=== PATIENT | female | born 1930 | race Caucasian/White ===

== ENCOUNTER 2016-09-20 14:21 | Outpatient (CLI) | payer MEDICARE | END 2016-09-20 14:22 | disposition home or self-care (01) | LOC: HPCALD 14:21 | PROVIDERS: ATTEND Family Medicine | DX: N39.0 Urinary tract infection, site not specified (principal) | CPT/HCPCS: 87086 ==

== ENCOUNTER 2018-02-24 15:34 | Outpatient (CLI) | payer MEDICARE ==
--- NOTE | 2018-02-24 19:51 | RAD ---
LUMBAR SPINE THREE VIEWS: 02/24/2018 COMPARISON: No prior films are available for comparison. FINDINGS: The bones are osteopenic, which decreases sensitivity slightly. There is an anterior compression fra cture of the T12 vertebral body, with at least 70% loss of the anterior height. Grade 1 spondylolist hesis of L4 on L5 is seen, probably due to facet arthritis. There is disk space narrowing at L5-S1 a nd to a lesser extent at L2-L3 and L3-L4. Mild scoliosis is present, convex right. The SI joints ap pear normal. IMPRESSION: 1. Prominent anterior compression fracture of the T12 vertebral body. 2. Grade 1 spondylolisthesis of L4 on L5. 3. Degenerative disk disease, multilevel, but prominent at L5-S1. 4. Scoliosis. POS: HOME
== END 2018-02-24 15:35 | disposition home or self-care (01) ==
LOC: BURRAD 15:34
PROVIDERS: ATTEND Family Medicine
DX: M51.16 Intervertebral disc disorders with radiculopathy, lumbar region (principal); M43.16 Spondylolisthesis, lumbar region; M51.37 Other intervertebral disc degeneration, lumbosacral region; M41.9 Scoliosis, unspecified; M48.54XA Collapsed vertebra, not elsewhere classified, thoracic region, initial encounter for fracture
CPT/HCPCS: 72100

== ENCOUNTER 2019-02-10 08:54 | Outpatient (CLI) | payer MEDICARE ==
--- NOTE | 2019-02-10 18:19 | ULT ---
ABDOMINAL ULTRASOUND: 02/10/19 Ultrasonography of the abdomen was performed and compared with a prior study dated 09/10/18 that covere d the right upper quadrant. Today's exam shows a normal appearing liver, spleen and pancreas. The gal lbladder has been surgically removed since the prior exam. The common bile duct is a normal 5 mm in c aliber. The aorta and inferior vena cava were unremarkable showing no dilation. The right kidney is 9 .2 cm long and contains a 4.1 cm cyst in its lower pole. It appears to be a simple cyst and has not c hanged in size since the prior exam. The left kidney appears normal and is 9.4 cm long. IMPRESSION: 1. No acute abdominal findings. 2. 4.1 cm right renal cyst, lower pole. Little change since the prior exam. POS: HOME
== END 2019-02-10 08:55 | disposition home or self-care (01) ==
LOC: BURULT 08:54
PROVIDERS: ATTEND Family Medicine
DX: R10.84 Generalized abdominal pain (principal); N28.1 Cyst of kidney, acquired
CPT/HCPCS: 76700

== ENCOUNTER 2019-03-03 11:17 | Outpatient (CLI) | payer MEDICARE ==
--- NOTE | 2019-03-03 21:53 | RAD ---
CHEST TWO VIEWS: 03/03/19 Comparison is made with prior studies of September 2018. There is increased lung markings in the left lower lobe posteriorly that seem to be new compared to t he prior study. The right lung is relatively clear. The heart size is normal. There is no vascular co ngestion or edema. Calcification of the aortic arch is noted. IMPRESSION: Left lower lobe infiltrate. In the proper context, pneumonia would be diagnosed. Code T POS: HOME
== END 2019-03-03 11:18 | disposition home or self-care (01) ==
LOC: BURRAD 11:17
PROVIDERS: ATTEND Family Medicine
DX: R05 Cough (principal); R91.8 Other nonspecific abnormal finding of lung field
CPT/HCPCS: 71046

== ENCOUNTER 2020-06-16 16:31 | Outpatient (CLI) | payer MEDICARE ==
--- NOTE | 2020-06-16 17:43 | RAD ---
CHEST TWO VIEWS: 06/16/20 This patient typically has some fine interstitial prominence in the lungs, particularly the left lung and more lower lobe than upper. The same is true today. Any differences in the two studies are proba mickey more related to technique than any actual change. As such, no definite acute pulmonary findings w ere encountered. The baseline of interstitial prominence (presumably fibrosis) could mask early subtl e infiltrates or ground glass densities. The heart is minimally enlarged and no different. There is n o congestion or effusion. IMPRESSION: Mild interstitial prominence, more so in the left lower lobe. The overall appearance is little differ ent than the 03/03/19 study. If the patient continues with current symptoms or worsens, then it might be worth doing a CT to get a finer look at the lungs themselves. POS: HOME
== END 2020-06-16 16:32 | disposition home or self-care (01) ==
LOC: BURRAD 16:31
PROVIDERS: ATTEND Registered Nurse Community Health
DX: R05 Cough (principal)
CPT/HCPCS: 71046